=== PATIENT | female | born 1950 | race Caucasian/White ===

== ENCOUNTER 2025-02-17 07:00 | Day surgery (SDC) | payer MEDICARE, OTHER ==
[~2025-02-17 07:00] MED LIST: Lactated Ringers 1,000 ML IV ONE
[2025-02-17] MEDS: TETRACAINE 0.5% STERI-UNIT SOL OP ONE ×2 (07:27→07:45)
[2025-02-17] MEDS: Ak-Dilate OPHTHALMIC*** 0.71 ML, Cyclogyl 1% OPHTH SOL 0.71 ML, GATIFLOXACIN 0.5% OPHTH... OP SCH (07:27)
[2025-02-17 07:41] LABS: Calcium 9.0 mg/dL (8.4-10.2); Carbon Dioxide 25.0 mmol/L (22-30); Creatinine 1 1.07 mg/dL (0.52-1.04); EST GLOMERULAR FILTRATION RATE 53.8 ML/MIN; Glucose 92.0 mg/dL (74-106); Potassium 3.1 mmol/L (3.5-5.1)
[2025-02-17] MEDS: Lactated Ringers 1,000 ML IV SCH (07:42)
[2025-02-17] MEDS ORDERED: DEXTENZA OP NR (09:00)
[2025-02-17] MEDS ORDERED: OMIDRIA 1-0.3% VIAL IO NR (09:00)
[2025-02-17] MEDS ORDERED: BETADINE 5% OPHTHALMIC 30 ML OP NR (09:00)
[2025-02-17] MEDS ORDERED: DEXMEDETOMIDINE 80 MCG/20ML-NS IV NR (09:00)
[2025-02-17] MEDS ORDERED: TRIAMCINOLONE 15 MG/ML INJ INTRAOP NR (09:00)
[2025-02-17] MEDS ORDERED: VIGAMOX/BSS 0.15% SYR IO NR (09:00)
[2025-02-17] MEDS ORDERED: Zofran 4 MG/2 ML VIAL IV PRN (09:00)
[2025-02-17] MEDS ORDERED: propofoL IV ONE (10:59)
[2025-02-17 11:28] VITALS: TEMP 97.5
[2025-02-17 11:31] VITALS: O2SAT 96
[2025-02-17] MEDS: ACETAZOLAMIDE 250 MG TABLET PO ONE (11:35)
[2025-02-17 11:38] VITALS: BP 133/84; PULSE 62; RESP 20
== END 2025-02-17 11:47 | disposition home or self-care (01) ==
LOC: SDC 07:00
PROVIDERS: ATTEND Ophthalmology
DX: H25.811 Combined forms of age-related cataract, right eye (principal); I10 Essential (primary) hypertension